=== PATIENT | male | born 1980 | race Caucasian/White ===

== ENCOUNTER 2019-07-17 13:10 | Inpatient (IN) ==
[2019-07-17] MEDS ORDERED: 0.9 % Sodium Chloride 1,000 ML IVC ONE ×3 (13:20→21:47)
[2019-07-17 14:12] LABS: Basophils % 0.2 %; Hematocrit 31.4 % (37.5-50.1); Hemoglobin 11.3 g/dL (12.9-16.9); Immature Granulocytes % 0.2 % (0-4); Lymphocytes # 0.5 K/mcL (0.6-4.6); Lymphocytes % 7.8 %; Mean Corpuscular Hemoglobin 28.8 pg (28.0-33.3); Mean Corpuscular Volume 79.9 fL (83.0-100.0); Monocytes # 0.2 K/mcL (0.0-1.3); Monocytes % 3.5 %; Neutrophils # 5.5 K/mcL (1.6-8.9); Platelet Count 260 K/mcL (140-400); Red Blood Count 3.93 M/mcL (4.19-5.50); Red Cell Distribution Width 13.1 % (11.5-14.5); Segmented Neutrophils % 88.3 %; White Blood Count 6.3 K/mcL (4.3-11.1)
[2019-07-17] MEDS ORDERED: cefTRIAXone 1,000 MG in Water for inj. (sterile) 10 ML IVP ONE (14:12)
[2019-07-17 14:34] LABS: Acetaminophen < 10 mcg/mL (10-20); Salicylate < 2.5 mg/dL (15.0-30.0); Troponin I < 0.03 ng/mL (< 0.04)
[2019-07-17 14:35] LABS: BUN/Creatinine Ratio 22 (6-26); Blood Urea Nitrogen 15 mg/dL (6-20); Calcium 9.5 mg/dL (8.6-10.3); Carbon Dioxide 24 mEq/L (23-29); Chloride 107 mEq/L (98-107); Ethanol < 10 mg/dL (Less than 10); Glucose 107 mg/dL (70-105); Osmolality,Calculated 289 (280-300); Potassium 3.6 mEq/L (3.5-5.1); Sodium 139 mEq/L (136-145); eGFR For African Americans > 60 (> 60); eGFR For Non-African Americans > 60 (> 60)
[2019-07-17 15:27] LABS: Bilirubin,Urine Negative (Negative); Blood,Urine Trace-intact (Negative); Clarity,Urine Clear (Clear); Color,Urine Yellow (Yellow); Glucose,Urine (UA) Normal (Normal); Ketones,Urine Negative (Negative); Leukocyte Esterase,Urine Negative (Negative); Nitrite,Urine Negative (Negative); PH,Urine 5.5 pH Units (5.0-8.0); Protein,Urine Trace mg/dL (Neg-Trace); Specific Gravity,Urine >= 1.030 (1.010-1.025); Urobilinogen,Urine Normal (Normal)
[2019-07-17 15:30] LABS: Bacteria,Urine None Seen per hpf (None-Few); Hyaline Casts,Urine None Seen per lpf (None-Few); RBC,Urine 0-3 per hpf (0-3); Squamous Epithelial Cell,Urine Moderate per lpf (None-Few); WBC,Urine 0-3 per hpf (0-3)
[2019-07-17 15:40] LABS: Amphetamine Screen,Urine Positive ng/mL (Cutoff=1000); Barbiturate Screen,Urine Negative ng/mL (Cutoff=200); Benzodiazepines Screen,Urine Negative ng/mL (Cutoff=200); Cannabinoid Screen,Urine Negative ng/mL (Cutoff = 50); Cocaine Screen,Urine Negative ng/mL (Cutoff= 300); Opiate Screen,Urine Negative ng/mL (Cutoff=300); Phencyclidine Screen,Urine Negative ng/mL (Cutoff=25)
[2019-07-17] MEDS ORDERED: *HR* LORazepam 1 MG TABLET PO ONE (16:01)
[2019-07-17] MEDS ORDERED: *HR* LORazepam 2 MG/ML VIAL IVP PRN ×3 (20:12)
[2019-07-17] MEDS ORDERED: Naloxone 0.4 MG/ML INJ IVP PRN (21:41)
[2019-07-17] MEDS: Thiamine (B-1) 100 MG, Folic Acid 1 MG, MVI, adult with vitamin K 10 ML in 0.9 % Sodi... IVPB SCH (22:42)
[2019-07-17] MEDS ORDERED: Nicotine 21 MG PATCH.TD24 TD PRN (23:06)
[2019-07-18 02:23] LABS: Hematocrit 29.9 % (37.5-50.1); Hemoglobin 10.1 g/dL (12.9-16.9); Mean Corpuscular HGB Conc 33.8 g/dL (31.6-35.5); Mean Corpuscular Hemoglobin 28.8 pg (28.0-33.3); Mean Corpuscular Volume 85.2 fL (83.0-100.0); Mean Platelet Volume 10.4 fL (9.4-12.4); Platelet Count 236 K/mcL (140-400); Red Blood Count 3.51 M/mcL (4.19-5.50); Red Cell Distribution Width 13.5 % (11.5-14.5); White Blood Count 5.9 K/mcL (4.3-11.1)
[2019-07-18 02:27] LABS: INR 1.1; Prothrombin Time 12.5 Seconds (9.4-12.1)
[2019-07-18 02:43] LABS: Alanine Aminotransferase 23 Units/L (7-52); Albumin 3.7 g/dL (3.5-5.7); Albumin/Globulin Ratio 1.8 (1.1-2.2); Alkaline Phosphatase 47 Units/L (34-104); Aspartate Amino Transferase 34 Units/L (13-39); BUN/Creatinine Ratio 11 (6-26); Bilirubin,Total 0.3 mg/dL (0.3-1.0); Blood Urea Nitrogen 8 mg/dL (6-20); Calcium 8.9 mg/dL (8.6-10.3); Carbon Dioxide 24 mEq/L (23-29); Chloride 111 mEq/L (98-107); Globulin 2.1 g/dL (2.4-3.5); Glucose 95 mg/dL (70-105); Magnesium 1.8 mg/dL (1.6-2.6); Osmolality,Calculated 294 (280-300); Phosphorous 3.1 mg/dL (2.7-4.5); Potassium 3.6 mEq/L (3.5-5.1); Sodium 143 mEq/L (136-145); Total Protein 5.8 g/dL (6.4-8.9); eGFR For African Americans > 60 (> 60); eGFR For Non-African Americans > 60 (> 60)
[2019-07-18] MEDS: 0.9 % Sodium Chloride 1,000 ML IVC SCH ×2 (12:00→22:48)
[2019-07-18] MEDS: Thiamine (B-1) 100 MG, Folic Acid 1 MG, MVI, adult with vitamin K 10 ML in 0.9 % Sodi... IVPB SCH (17:57)
[2019-07-18] MEDS ORDERED: *HR* Heparin 5,000 UNIT/ML VIAL SQ SCH (18:00)
[2019-07-18] MEDS ORDERED: Haloperidol Lactate 5 MG/ML VIAL IVP PRN ×2 (18:38→23:43)
[2019-07-18] MEDS ORDERED: Thiamine (B-1) 100 MG, Folic Acid 1 MG, MVI, adult with vitamin K 10 ML in 0.9 % Sodi... IVPB SCH (21:43)
[2019-07-18] MEDS ORDERED: *HR* LORazepam 2 MG/ML VIAL IVP ONE (22:05)
[2019-07-18] MEDS ORDERED: Dexmedetomidine HCl 400 MCG/100 ML MLS IVC SCH (23:00)
[2019-07-18] MEDS: Dexmedetomidine HCl 400 MCG/100 ML MLS IVC SCH (23:15)
[2019-07-18] MEDS ORDERED: 0.9 % Sodium Chloride 1,000 ML IVC SCH (23:43)
[2019-07-18] MEDS ORDERED: Nicotine 21 MG PATCH.TD24 TD PRN (23:43)
[2019-07-18] MEDS ORDERED: *HR* LORazepam 2 MG/ML VIAL IVP PRN ×3 (23:43)
[2019-07-18] MEDS ORDERED: Naloxone 0.4 MG/ML INJ IVP PRN (23:43)
[2019-07-19 04:57] LABS: Hemoglobin 10.6 g/dL (12.9-16.9); Mean Corpuscular HGB Conc 33.1 g/dL (31.6-35.5); Mean Corpuscular Hemoglobin 28.2 pg (28.0-33.3); Mean Corpuscular Volume 85.1 fL (83.0-100.0); Mean Platelet Volume 10.3 fL (9.4-12.4); Platelet Count 241 K/mcL (140-400); Red Blood Count 3.76 M/mcL (4.19-5.50); Red Cell Distribution Width 13.2 % (11.5-14.5); White Blood Count 6.3 K/mcL (4.3-11.1)
[2019-07-19 05:12] LABS: BUN/Creatinine Ratio 8 (6-26); Blood Urea Nitrogen 6 mg/dL (6-20); Calcium 9.1 mg/dL (8.6-10.3); Carbon Dioxide 23 mEq/L (23-29); Chloride 110 mEq/L (98-107); Glucose 110 mg/dL (70-105); Osmolality,Calculated 292 (280-300); Potassium 3.6 mEq/L (3.5-5.1); Sodium 142 mEq/L (136-145); eGFR For African Americans > 60 (> 60); eGFR For Non-African Americans > 60 (> 60)
[2019-07-19] MEDS: *HR* Heparin 5,000 UNIT/ML VIAL SQ SCH ×2 (05:54→17:04)
[2019-07-19] MEDS: Dexmedetomidine HCl 400 MCG/100 ML MLS IVC SCH (12:41)
[2019-07-19] MEDS ORDERED: SUBOXONE PO SCH (16:00)
[2019-07-19] MEDS ORDERED: *HR* Buprenorphine HCl 8 MG TAB.SUBL SL SCH (16:00)
[2019-07-19] MEDS ORDERED: Thiamine (B-1) 100 MG, Folic Acid 1 MG, MVI, adult with vitamin K 10 ML in 0.9 % Sodi... IVPB SCH (18:00)
[2019-07-20] MEDS: *HR* Heparin 5,000 UNIT/ML VIAL SQ SCH (05:44)
[2019-07-20] MEDS ORDERED: Thiamine (B-1) 100 MG TABLET PO SCH ×2 (09:00)
[2019-07-20] MEDS ORDERED: Folic Acid 1 MG TABLET PO SCH ×2 (09:00)
[2019-07-20] MEDS ORDERED: Vitamin B Complex/Vit C/Vit E 1 EACH TABLET PO SCH ×2 (09:00)
[2019-07-20 11:40] VITALS: BP 105/76
== END 2019-07-20 13:35 | disposition home or self-care (01) | DRG 917 ==
LOC: EMEROOARM 13:10 → 3ANU 13:10 → SUATTDRO 18:52 → 3ANU 19:28 → ICNU 07-18 23:43 → 2NNU 07-19 16:54
PROVIDERS: ADMIT Internal Medicine; ATTEND Internal Medicine

== ENCOUNTER 2021-05-30 10:51 | Inpatient (IN) ==
[2021-05-30] MEDS ORDERED: *HR* LORazepam 0.5 MG TABLET PO ONE (13:39)
[2021-05-30 13:47] LABS: Basophils % 0.6 %; Eosinophils % 0.6 %; Hematocrit 41.4 % (37.5-50.1); Hemoglobin 13.4 g/dL (12.9-16.9); Immature Granulocytes % 0.3 % (0-4); Lymphocytes # 1.1 K/mcL (0.6-4.6); Lymphocytes % 17.7 %; Mean Corpuscular HGB Conc 32.4 g/dL (31.6-35.5); Mean Corpuscular Hemoglobin 28.2 pg (28.0-33.3); Monocytes # 0.5 K/mcL (0.0-1.3); Monocytes % 8.5 %; Neutrophils # 4.6 K/mcL (1.6-8.9); Platelet Count 178 K/mcL (140-400); Red Blood Count 4.76 M/mcL (4.19-5.50); Red Cell Distribution Width 13.5 % (11.5-14.5); Segmented Neutrophils % 72.3 %; White Blood Count 6.3 K/mcL (4.3-11.1)
[2021-05-30] MEDS: Nicotine 7 MG PATCH.TD24 TD SCH (14:29)
[2021-05-30 14:45] LABS: Acetaminophen < 10 mcg/mL (10-20); BUN/Creatinine Ratio 9 (6-26); Blood Urea Nitrogen 6 mg/dL (6-20); Calcium 9.5 mg/dL (8.6-10.3); Carbon Dioxide 25 mEq/L (23-29); Chloride 92 mEq/L (98-107); Ethanol < 10 mg/dL (Less than 10); Glucose 91 mg/dL (70-105); Osmolality,Calculated 273 (280-300); Potassium 3.3 mEq/L (3.5-5.1); Salicylate < 2.5 mg/dL (15.0-30.0); Sodium 133 mEq/L (136-145); eGFR For African Americans > 60 (> 60); eGFR For Non-African Americans > 60 (> 60)
[2021-05-30 15:14] LABS: Influenza A PCR Negative (Negative); Influenza B PCR Negative (Negative); Resp. Syncytial Virus PCR Negative (Negative)
[2021-05-30 15:15] LABS: SARS-CoV-2 by PCR (In House) Negative (Negative)
[2021-05-30 16:33] LABS: Bilirubin,Urine Negative (Negative); Blood,Urine Negative (Negative); Clarity,Urine Clear (Clear); Color,Urine Light-Yellow (Yellow); Glucose,Urine (UA) Normal (Normal); Ketones,Urine Negative (Negative); Leukocyte Esterase,Urine Negative (Negative); Nitrite,Urine Negative (Negative); PH,Urine 6.5 pH Units (5.0-8.0); Protein,Urine Negative (Neg-Trace); Specific Gravity,Urine 1.011 (1.010-1.025); Urobilinogen,Urine Normal (Normal)
[2021-05-30 16:38] LABS: Amphetamine Screen,Urine Positive ng/mL (Cutoff=1000); Barbiturate Screen,Urine Negative ng/mL (Cutoff=200); Benzodiazepines Screen,Urine Negative ng/mL (Cutoff=200); Cannabinoid Screen,Urine Positive ng/mL (Cutoff = 50); Cocaine Screen,Urine Negative ng/mL (Cutoff= 300); Opiate Screen,Urine Negative ng/mL (Cutoff=300); Phencyclidine Screen,Urine Negative ng/mL (Cutoff=25)
[2021-05-30] MEDS ORDERED: QUEtiapine Fumarate 300 MG TABLET PO STA (19:36)
[2021-05-30] MEDS ORDERED: *HR* LORazepam 2 MG/ML VIAL IM PRN (20:09)
[2021-05-30] MEDS ORDERED: haloperidoL 5 MG TABLET PO PRN (20:09)
[2021-05-30] MEDS ORDERED: Acetaminophen 325 MG TABLET PO PRN (20:09)
[2021-05-30] MEDS ORDERED: *HR* LORazepam 1 MG TABLET PO PRN (20:09)
[2021-05-30] MEDS ORDERED: Haloperidol Lactate 5 MG/ML VIAL IM PRN (20:09)
[2021-05-30] MEDS ORDERED: hydrOXYzine pamoate 25 MG CAPSULE PO PRN (20:09)
[2021-05-30] MEDS ORDERED: NON-FORMULARY MEDICATION 1 EACH EACH (Quetiapine Fumarate [Seroquel] 400 MG Tablet) PO SCH (21:00)
[2021-05-31] MEDS: Buprenorphine Hcl/Naloxone Hcl 8-2MG SL SCH ×2 (10:37→21:15)
[2021-05-31] MEDS: Nicotine 7 MG PATCH.TD24 TD SCH (10:39)
[2021-05-31] MEDS ORDERED: Mag Hydrox/Al Hydrox/Simeth 30 ML UDC PO PRN (13:01)
[2021-05-31] MEDS ORDERED: MOM Conc 10 ML UD.LIQ PO PRN (13:01)
[2021-05-31] MEDS: QUETIAPINE FUMARATE PO SCH (21:14)
[2021-06-01] MEDS: Nicotine 7 MG PATCH.TD24 TD SCH (10:25)
[2021-06-01] MEDS: Buprenorphine Hcl/Naloxone Hcl 8-2MG SL SCH ×2 (10:25→20:43)
[2021-06-01] MEDS: QUETIAPINE FUMARATE PO SCH (20:42)
[2021-06-02] MEDS: Buprenorphine Hcl/Naloxone Hcl 8-2MG SL SCH ×2 (08:56→20:36)
[2021-06-02] MEDS: Nicotine 7 MG PATCH.TD24 TD SCH (08:58)
[2021-06-02] MEDS: haloperidoL 1 MG TABLET PO SCH ×2 (11:11→20:36)
[2021-06-02] MEDS: QUETIAPINE FUMARATE PO SCH (20:36)
[2021-06-03] MEDS: Buprenorphine Hcl/Naloxone Hcl 8-2MG SL SCH ×2 (08:45→21:06)
[2021-06-03] MEDS: Nicotine 7 MG PATCH.TD24 TD SCH (08:45)
[2021-06-03] MEDS: haloperidoL 1 MG TABLET PO SCH ×2 (08:48→21:06)
[2021-06-03] MEDS: QUETIAPINE FUMARATE PO SCH (21:06)
[2021-06-04] MEDS: haloperidoL 1 MG TABLET PO SCH ×2 (08:20→20:43)
[2021-06-04] MEDS: Buprenorphine Hcl/Naloxone Hcl 8-2MG SL SCH ×2 (08:20→20:44)
[2021-06-04] MEDS: Nicotine 7 MG PATCH.TD24 TD SCH (08:20)
[2021-06-04] MEDS: QUETIAPINE FUMARATE PO SCH (20:43)
[2021-06-04] MEDS: Clotrimazole 1% CRM 15 GM TUBE TP SCH (20:45)
[2021-06-05] MEDS: Nicotine 7 MG PATCH.TD24 TD SCH (08:45)
[2021-06-05] MEDS: *HR* Buprenorphine HCl 8 MG TAB.SUBL SL SCH ×2 (08:47→20:11)
[2021-06-05] MEDS: haloperidoL 1 MG TABLET PO SCH ×2 (08:48→20:11)
[2021-06-05] MEDS: Clotrimazole 1% CRM 15 GM TUBE TP SCH ×2 (08:52→20:12)
[2021-06-05] MEDS: QUETIAPINE FUMARATE PO SCH (20:11)
[2021-06-06] MEDS: Nicotine 7 MG PATCH.TD24 TD SCH (09:06)
[2021-06-06] MEDS: haloperidoL 1 MG TABLET PO SCH (09:07)
[2021-06-06] MEDS: *HR* Buprenorphine HCl 8 MG TAB.SUBL SL SCH ×2 (09:07→20:38)
[2021-06-06] MEDS: Clotrimazole 1% CRM 15 GM TUBE TP SCH ×2 (09:44→20:51)
[2021-06-06] MEDS: Nicotine 14 MG PATCH.TD24 TD SCH (15:35)
[2021-06-06] MEDS: haloperidoL 5 MG TABLET PO SCH (20:38)
[2021-06-06] MEDS: QUETIAPINE FUMARATE PO SCH (20:38)
[2021-06-06] MEDS: QUEtiapine Fumarate 25 MG TABLET PO PRN (22:21)
[2021-06-07] MEDS: Nicotine 14 MG PATCH.TD24 TD SCH (08:49)
[2021-06-07] MEDS: *HR* Buprenorphine HCl 8 MG TAB.SUBL SL SCH ×2 (08:50→20:37)
[2021-06-07] MEDS: haloperidoL 5 MG TABLET PO SCH ×2 (08:50→20:38)
[2021-06-07] MEDS: Clotrimazole 1% CRM 15 GM TUBE TP SCH ×2 (08:52→20:39)
[2021-06-07] MEDS: QUETIAPINE FUMARATE PO SCH (20:37)
[2021-06-08] MEDS: QUEtiapine Fumarate 25 MG TABLET PO PRN (00:46)
[2021-06-08 09:27] VITALS: BP 108/70; PULSE 80; TEMP 98; O2SAT 96
[2021-06-08] MEDS: haloperidoL 5 MG TABLET PO SCH (09:44)
[2021-06-08] MEDS: Clotrimazole 1% CRM 15 GM TUBE TP SCH (09:44)
[2021-06-08] MEDS: *HR* Buprenorphine HCl 8 MG TAB.SUBL SL SCH (09:44)
[2021-06-08] MEDS: Nicotine 14 MG PATCH.TD24 TD SCH (09:44)
== END 2021-06-08 12:50 | disposition home or self-care (01) | DRG 885 ==
LOC: 1ANU 10:51 → EMEROOARM 10:51 → 1ANU 20:37
PROVIDERS: ADMIT Psychiatry & Neurology Psychiatry; ATTEND Psychiatry & Neurology Psychiatry

== ENCOUNTER 2021-08-02 00:07 | Inpatient (IN) ==
[2021-08-02 03:19] LABS: Basophils % 0.1 %; Hematocrit 44.3 % (37.5-50.1); Hemoglobin 15.3 g/dL (12.9-16.9); Immature Granulocytes % 0.4 % (0-4); Lymphocytes # 0.5 K/mcL (0.6-4.6); Lymphocytes % 3.8 %; Mean Corpuscular HGB Conc 34.5 g/dL (31.6-35.5); Mean Corpuscular Hemoglobin 27.3 pg (28.0-33.3); Mean Platelet Volume 11.1 fL (9.4-12.4); Monocytes # 0.3 K/mcL (0.0-1.3); Monocytes % 2.8 %; Neutrophils # 11.3 K/mcL (1.6-8.9); Platelet Count 176 K/mcL (140-400); Red Blood Count 5.61 M/mcL (4.19-5.50); Red Cell Distribution Width 13.2 % (11.5-14.5); Segmented Neutrophils % 92.9 %; White Blood Count 12.2 K/mcL (4.3-11.1)
[2021-08-02 03:26] LABS: VBG HCO3 32 mEq/L (21-27); VBG PCO2 45 mmHg (41-51); VBG PH 7.45 pH Units (7.32-7.42); VBG PO2 42 mmHg (25-50)
[2021-08-02 03:40] LABS: Alanine Aminotransferase 10 Units/L (7-52); Albumin 3.6 g/dL (3.5-5.7); Albumin/Globulin Ratio 1.2 (1.1-2.2); Alkaline Phosphatase 54 Units/L (34-104); Aspartate Amino Transferase 16 Units/L (13-39); BUN/Creatinine Ratio 21 (6-26); Bilirubin,Total 0.6 mg/dL (0.3-1.0); Blood Urea Nitrogen 11 mg/dL (6-20); Calcium 8.8 mg/dL (8.6-10.3); Carbon Dioxide 33 mEq/L (23-29); Chloride 86 mEq/L (98-107); Globulin 3.1 g/dL (2.4-3.5); Glucose 128 mg/dL (70-105); Osmolality,Calculated 267 (280-300); Potassium 3.2 mEq/L (3.5-5.1); Sodium 128 mEq/L (136-145); Total Protein 6.7 g/dL (6.4-8.9); Troponin I < 0.03 ng/mL (< 0.04); eGFR For African Americans > 60 (> 60); eGFR For Non-African Americans > 60 (> 60)
[2021-08-02] MEDS ORDERED: Isovue-370 500 ML BOTTLE IVP ONE (03:43)
[2021-08-02 03:58] LABS: Ferritin 607 ng/mL (20-250)
[2021-08-02 05:01] LABS: Influenza A PCR Negative (Negative); Influenza B PCR Negative (Negative); Resp. Syncytial Virus PCR Negative (Negative)
[2021-08-02 05:02] LABS: SARS-CoV-2 by PCR (In House) Positive (Negative)
[2021-08-02] MEDS ORDERED: Vancomycin 1,250 MG/262.5 ML IV.SOLN IVPB ONE (05:15)
[2021-08-02] MEDS ORDERED: Cefepime HCl 2,000 MG in Water for inj. (sterile) 20 ML IVP ONE (05:19)
[2021-08-02] MEDS ORDERED: Naloxone 0.4 MG/ML INJ IVP PRN (05:36)
[2021-08-02] MEDS ORDERED: Melatonin 3 MG TABLET PO PRN (05:36)
[2021-08-02] MEDS ORDERED: 0.9 % Sodium Chloride 500 ML IVC ONE (06:02)
[2021-08-02] MEDS ORDERED: Remdesivir 200 MG in 0.9 % Sodium Chloride 100 ML IVPB ONE (07:00)
[2021-08-02 07:28] LABS: Bacteria,Urine Few per hpf (None-Few); Bilirubin,Urine Negative (Negative); Blood,Urine Negative (Negative); Clarity,Urine Clear (Clear); Color,Urine Yellow (Yellow); Glucose,Urine (UA) Normal (Normal); Ketones,Urine Negative (Negative); Leukocyte Esterase,Urine Negative (Negative); Mucus,Urine Few per lpf (None-Few); Nitrite,Urine Negative (Negative); Protein,Urine 30 mg/dL (Neg-Trace); Specific Gravity,Urine > 1.030 (1.010-1.025); Urobilinogen,Urine Normal (Normal); WBC,Urine 0-3 per hpf (0-3)
[2021-08-02] MEDS: *HR* Enoxaparin 40 MG/0.4 ML SYRINGE SQ SCH (08:38)
[2021-08-02] MEDS: haloperidoL 5 MG TABLET PO SCH ×2 (09:49→20:42)
[2021-08-02] MEDS ORDERED: 0.9 % Sodium Chloride 500 ML IVC SCH (11:00)
[2021-08-02] MEDS: Ipratropium 1 PUFF INHALER IH SCH ×3 (11:11→21:06)
[2021-08-02] MEDS: Ampicillin/Sulbactam 1,500 MG in 0.9 % Sodium Chloride Mini Bag 100 ML IVPB SCH ×3 (11:12→20:42)
[2021-08-02] MEDS: Nicotine 21 MG PATCH.TD24 TD SCH (11:13)
[2021-08-02 12:33] LABS: Amphetamine Screen,Urine Positive ng/mL (Cutoff=1000); Barbiturate Screen,Urine Negative ng/mL (Cutoff=200)
[2021-08-02 12:37] LABS: Benzodiazepines Screen,Urine Negative ng/mL (Cutoff=300); Cannabinoid Screen,Urine Positive ng/mL (Cutoff = 50); Cocaine Screen,Urine Negative ng/mL (Cutoff= 300); Opiate Screen,Urine Negative ng/mL (Cutoff=300); Phencyclidine Screen,Urine Negative ng/mL (Cutoff=25)
[2021-08-02] MEDS ORDERED: Cefepime HCl 2,000 MG in Water for inj. (sterile) 20 ML IVP SCH (13:00)
[2021-08-02] MEDS ORDERED: Ondansetron 4 MG/2 ML VIAL IVP PRN (15:03)
[2021-08-02] MEDS: QUEtiapine Fumarate 100 MG TABLET PO SCH (20:42)
[2021-08-03 01:03] LABS: Basophils % 0.1 %; Hematocrit 37.8 % (37.5-50.1); Immature Granulocytes % 0.4 % (0-4); Lymphocytes # 0.4 K/mcL (0.6-4.6); Lymphocytes % 4.6 %; Mean Corpuscular HGB Conc 34.7 g/dL (31.6-35.5); Mean Corpuscular Hemoglobin 27.6 pg (28.0-33.3); Mean Corpuscular Volume 79.7 fL (83.0-100.0); Mean Platelet Volume 11.4 fL (9.4-12.4); Monocytes # 0.3 K/mcL (0.0-1.3); Monocytes % 3.9 %; Neutrophils # 6.9 K/mcL (1.6-8.9); Platelet Count 180 K/mcL (140-400); Red Blood Count 4.74 M/mcL (4.19-5.50); Red Cell Distribution Width 13.3 % (11.5-14.5); White Blood Count 7.6 K/mcL (4.3-11.1)
[2021-08-03 01:05] LABS: Hemoglobin 13.1 g/dL (12.9-16.9)
[2021-08-03 01:20] LABS: BUN/Creatinine Ratio 33 (6-26); Blood Urea Nitrogen 15 mg/dL (6-20); Calcium 8.7 mg/dL (8.6-10.3); Carbon Dioxide 31 mEq/L (23-29); Chloride 92 mEq/L (98-107); Glucose 128 mg/dL (70-105); Magnesium 1.8 mg/dL (1.6-2.6); Osmolality,Calculated 276 (280-300); Potassium 3.5 mEq/L (3.5-5.1); Sodium 132 mEq/L (136-145); eGFR For African Americans > 60 (> 60); eGFR For Non-African Americans > 60 (> 60)
[2021-08-03 01:21] LABS: Albumin 3.2 g/dL (3.5-5.7); Albumin/Globulin Ratio 1.2 (1.1-2.2); Bilirubin,Direct 0.1 mg/dL (0.0-0.2); Bilirubin,Indirect 0.3 mg/dL (0.0-1.0); Bilirubin,Total 0.4 mg/dL (0.3-1.0); Globulin 2.6 g/dL (2.4-3.5); Total Protein 5.8 g/dL (6.4-8.9)
[2021-08-03] MEDS: Ampicillin/Sulbactam 1,500 MG in 0.9 % Sodium Chloride Mini Bag 100 ML IVPB SCH ×4 (03:02→20:12)
[2021-08-03] MEDS: Ipratropium 1 PUFF INHALER IH SCH ×5 (04:13→21:03)
[2021-08-03] MEDS: *HR* Enoxaparin 40 MG/0.4 ML SYRINGE SQ SCH (05:50)
[2021-08-03] MEDS: Remdesivir 100 MG in 0.9 % Sodium Chloride 100 ML IVPB SCH (05:51)
[2021-08-03] MEDS: haloperidoL 5 MG TABLET PO SCH ×2 (08:07→20:11)
[2021-08-03] MEDS: Dexamethasone Sodium Phos/PF 10 MG/ML VIAL IVP SCH (08:07)
[2021-08-03] MEDS: Nicotine 21 MG PATCH.TD24 TD SCH (08:16)
[2021-08-03] MEDS: QUEtiapine Fumarate 100 MG TABLET PO SCH (20:11)
[2021-08-04 02:53] LABS: Albumin 3.2 g/dL (3.5-5.7); Albumin/Globulin Ratio 1.2 (1.1-2.2); Bilirubin,Direct 0.1 mg/dL (0.0-0.2); Bilirubin,Indirect 0.2 mg/dL (0.0-1.0); Bilirubin,Total 0.3 mg/dL (0.3-1.0); Globulin 2.6 g/dL (2.4-3.5); Total Protein 5.8 g/dL (6.4-8.9)
[2021-08-04] MEDS: Ampicillin/Sulbactam 1,500 MG in 0.9 % Sodium Chloride Mini Bag 100 ML IVPB SCH ×4 (04:10→21:29)
[2021-08-04] MEDS: Ipratropium 1 PUFF INHALER IH SCH ×4 (04:58→19:55)
[2021-08-04] MEDS: *HR* Enoxaparin 40 MG/0.4 ML SYRINGE SQ SCH (06:02)
[2021-08-04] MEDS: Remdesivir 100 MG in 0.9 % Sodium Chloride 100 ML IVPB SCH (06:03)
[2021-08-04] MEDS: haloperidoL 5 MG TABLET PO SCH ×2 (08:46→21:29)
[2021-08-04] MEDS: Dexamethasone Sodium Phos/PF 10 MG/ML VIAL IVP SCH (08:46)
[2021-08-04] MEDS: Nicotine 21 MG PATCH.TD24 TD SCH (08:46)
[2021-08-04] MEDS: QUEtiapine Fumarate 100 MG TABLET PO SCH (21:29)
[2021-08-05] MEDS: Ampicillin/Sulbactam 1,500 MG in 0.9 % Sodium Chloride Mini Bag 100 ML IVPB SCH ×4 (02:40→21:44)
[2021-08-05] MEDS: Ipratropium 1 PUFF INHALER IH SCH ×4 (03:46→20:05)
[2021-08-05] MEDS: Remdesivir 100 MG in 0.9 % Sodium Chloride 100 ML IVPB SCH (06:00)
[2021-08-05] MEDS: *HR* Enoxaparin 40 MG/0.4 ML SYRINGE SQ SCH (06:00)
[2021-08-05 06:12] LABS: Hematocrit 38.3 % (37.5-50.1); Mean Corpuscular HGB Conc 33.9 g/dL (31.6-35.5); Mean Corpuscular Hemoglobin 27.8 pg (28.0-33.3); Mean Platelet Volume 10.1 fL (9.4-12.4); Platelet Count 309 K/mcL (140-400); Red Blood Count 4.67 M/mcL (4.19-5.50); Red Cell Distribution Width 13.4 % (11.5-14.5); White Blood Count 4.7 K/mcL (4.3-11.1)
[2021-08-05 06:37] LABS: Alanine Aminotransferase 26 Units/L (7-52); Albumin 3.4 g/dL (3.5-5.7); Albumin/Globulin Ratio 1.4 (1.1-2.2); Alkaline Phosphatase 55 Units/L (34-104); Aspartate Amino Transferase 33 Units/L (13-39); BUN/Creatinine Ratio 30 (6-26); Bilirubin,Direct 0.1 mg/dL (0.0-0.2); Bilirubin,Indirect 0.3 mg/dL (0.0-1.0); Bilirubin,Total 0.4 mg/dL (0.3-1.0); Blood Urea Nitrogen 16 mg/dL (6-20); Calcium 8.9 mg/dL (8.6-10.3); Carbon Dioxide 30 mEq/L (23-29); Chloride 97 mEq/L (98-107); Globulin 2.5 g/dL (2.4-3.5); Glucose 127 mg/dL (70-105); Osmolality,Calculated 283 (280-300); Sodium 135 mEq/L (136-145); Total Protein 5.9 g/dL (6.4-8.9); eGFR For African Americans > 60 (> 60); eGFR For Non-African Americans > 60 (> 60)
[2021-08-05] MEDS: Nicotine 21 MG PATCH.TD24 TD SCH (08:33)
[2021-08-05] MEDS: Cholecalciferol (D-3) 1,000 UNIT (25MCG) TABLET PO SCH (08:33)
[2021-08-05] MEDS: haloperidoL 5 MG TABLET PO SCH ×2 (08:33→21:45)
[2021-08-05] MEDS: Dexamethasone Sodium Phos/PF 10 MG/ML VIAL IVP SCH (08:35)
[2021-08-05] MEDS: NALOXONE SL SCH ×4 (15:13→22:16)
[2021-08-05] MEDS: BUPRENORPHINE SL SCH ×4 (15:13→22:16)
[2021-08-05] MEDS: QUEtiapine Fumarate 100 MG TABLET PO SCH (21:44)
[2021-08-06] MEDS: Ampicillin/Sulbactam 1,500 MG in 0.9 % Sodium Chloride Mini Bag 100 ML IVPB SCH ×4 (03:26→21:49)
[2021-08-06] MEDS: Ipratropium 1 PUFF INHALER IH SCH ×5 (04:33→20:47)
[2021-08-06 06:14] LABS: Hematocrit 37.1 % (37.5-50.1); Hemoglobin 12.3 g/dL (12.9-16.9); Mean Corpuscular HGB Conc 33.2 g/dL (31.6-35.5); Mean Corpuscular Hemoglobin 27.2 pg (28.0-33.3); Mean Corpuscular Volume 82.1 fL (83.0-100.0); Mean Platelet Volume 9.9 fL (9.4-12.4); Platelet Count 342 K/mcL (140-400); Red Blood Count 4.52 M/mcL (4.19-5.50); Red Cell Distribution Width 13.7 % (11.5-14.5); White Blood Count 5.9 K/mcL (4.3-11.1)
[2021-08-06] MEDS: *HR* Enoxaparin 40 MG/0.4 ML SYRINGE SQ SCH (06:14)
[2021-08-06] MEDS: Remdesivir 100 MG in 0.9 % Sodium Chloride 100 ML IVPB SCH (06:15)
[2021-08-06 06:38] LABS: Alanine Aminotransferase 27 Units/L (7-52); Albumin 3.1 g/dL (3.5-5.7); Albumin/Globulin Ratio 1.5 (1.1-2.2); Alkaline Phosphatase 48 Units/L (34-104); Aspartate Amino Transferase 25 Units/L (13-39); BUN/Creatinine Ratio 49 (6-26); Bilirubin,Direct 0.1 mg/dL (0.0-0.2); Bilirubin,Indirect 0.2 mg/dL (0.0-1.0); Bilirubin,Total 0.3 mg/dL (0.3-1.0); Blood Urea Nitrogen 19 mg/dL (6-20); Calcium 8.6 mg/dL (8.6-10.3); Carbon Dioxide 29 mEq/L (23-29); Chloride 103 mEq/L (98-107); Globulin 2.1 g/dL (2.4-3.5); Glucose 100 mg/dL (70-105); Osmolality,Calculated 286 (280-300); Potassium 3.9 mEq/L (3.5-5.1); Sodium 137 mEq/L (136-145); Total Protein 5.2 g/dL (6.4-8.9); eGFR For African Americans > 60 (> 60); eGFR For Non-African Americans > 60 (> 60)
[2021-08-06] MEDS: Dexamethasone Sodium Phos/PF 10 MG/ML VIAL IVP SCH (08:00)
[2021-08-06] MEDS: Cholecalciferol (D-3) 1,000 UNIT (25MCG) TABLET PO SCH (08:00)
[2021-08-06] MEDS: haloperidoL 5 MG TABLET PO SCH ×2 (08:00→21:48)
[2021-08-06] MEDS: Nicotine 21 MG PATCH.TD24 TD SCH (08:01)
[2021-08-06] MEDS: BUPRENORPHINE SL SCH ×2 (08:59→21:48)
[2021-08-06] MEDS: NALOXONE SL SCH ×2 (08:59→21:48)
[2021-08-06] MEDS ORDERED: Tuberculin Skin Test (PPD) 5 UNIT/0.1 ML VIAL ID ONE (13:56)
[2021-08-06] MEDS: QUEtiapine Fumarate 100 MG TABLET PO SCH (21:49)
[2021-08-07] MEDS: Ampicillin/Sulbactam 1,500 MG in 0.9 % Sodium Chloride Mini Bag 100 ML IVPB SCH ×4 (03:20→20:59)
[2021-08-07] MEDS: Ipratropium 1 PUFF INHALER IH SCH ×4 (04:22→19:53)
[2021-08-07] MEDS: *HR* Enoxaparin 40 MG/0.4 ML SYRINGE SQ SCH (04:52)
[2021-08-07] MEDS: Cholecalciferol (D-3) 1,000 UNIT (25MCG) TABLET PO SCH (09:41)
[2021-08-07] MEDS: Nicotine 21 MG PATCH.TD24 TD SCH (09:41)
[2021-08-07] MEDS: BUPRENORPHINE SL SCH ×2 (09:42→20:59)
[2021-08-07] MEDS: haloperidoL 5 MG TABLET PO SCH ×2 (09:42→20:59)
[2021-08-07] MEDS: Dexamethasone Sodium Phos/PF 10 MG/ML VIAL IVP SCH (09:42)
[2021-08-07] MEDS: NALOXONE SL SCH ×2 (09:42→20:59)
[2021-08-07] MEDS ORDERED: Perflutren Lipid Microsphere 1.3 ML in 0.9 % Sodium Chloride 8.7 ML IVP PRN (11:24)
[2021-08-07 15:20] LABS: Albumin 3.2 g/dL (3.5-5.7); Albumin/Globulin Ratio 1.3 (1.1-2.2); Bilirubin,Direct 0.1 mg/dL (0.0-0.2); Bilirubin,Indirect 0.2 mg/dL (0.0-1.0); Bilirubin,Total 0.3 mg/dL (0.3-1.0); Globulin 2.4 g/dL (2.4-3.5); Total Protein 5.6 g/dL (6.4-8.9)
[2021-08-07] MEDS ORDERED: Acetaminophen 325 MG TABLET PO PRN (17:21)
[2021-08-07] MEDS: QUEtiapine Fumarate 100 MG TABLET PO SCH (20:59)
[2021-08-08] MEDS: Ampicillin/Sulbactam 1,500 MG in 0.9 % Sodium Chloride Mini Bag 100 ML IVPB SCH ×4 (02:38→21:26)
[2021-08-08 02:50] LABS: Hematocrit 34.8 % (37.5-50.1); Hemoglobin 11.5 g/dL (12.9-16.9); Mean Corpuscular Hemoglobin 27.1 pg (28.0-33.3); Mean Corpuscular Volume 81.9 fL (83.0-100.0); Mean Platelet Volume 9.3 fL (9.4-12.4); Platelet Count 447 K/mcL (140-400); Red Blood Count 4.25 M/mcL (4.19-5.50); White Blood Count 6.4 K/mcL (4.3-11.1)
[2021-08-08 03:00] LABS: Prothrombin Time 10.8 Seconds (9.4-12.1)
[2021-08-08] MEDS: Ipratropium 1 PUFF INHALER IH SCH ×4 (03:47→20:15)
[2021-08-08 03:51] LABS: Anisocytosis 1+ (Not Present); Lymphocytes # 0.9 K/mcL (0.6-4.6); Monocytes # 0.3 K/mcL (0.0-1.3); Platelet Estimate Normal (Normal); Reactive Lymphocytes Present (Not Present); Toxic Granulation Present (Not Present)
[2021-08-08] MEDS: *HR* Enoxaparin 40 MG/0.4 ML SYRINGE SQ SCH (05:26)
[2021-08-08] MEDS: Dexamethasone Sodium Phos/PF 10 MG/ML VIAL IVP SCH (08:47)
[2021-08-08] MEDS: Cholecalciferol (D-3) 1,000 UNIT (25MCG) TABLET PO SCH (08:47)
[2021-08-08] MEDS: haloperidoL 5 MG TABLET PO SCH ×2 (08:47→21:26)
[2021-08-08] MEDS: Nicotine 21 MG PATCH.TD24 TD SCH (08:48)
[2021-08-08] MEDS: BUPRENORPHINE SL SCH ×2 (09:02→21:54)
[2021-08-08] MEDS: NALOXONE SL SCH ×2 (09:02→21:54)
[2021-08-08] MEDS ORDERED: Lidocaine -MPF 2% 5 ML VIAL ONE (11:30)
[2021-08-08] MEDS ORDERED: *HR* Succinylcholine 200 MG/10 ML VIAL IVP ONE (11:30)
[2021-08-08] MEDS ORDERED: *HR* Midazolam HCl 2 MG/2 ML VIAL ONE (11:30)
[2021-08-08] MEDS ORDERED: *HR* Rocuronium Bromide 50 MG/5 ML VIAL ONE (11:30)
[2021-08-08] MEDS ORDERED: Ondansetron 4 MG/2 ML VIAL ONE (11:30)
[2021-08-08] MEDS ORDERED: *HR* FentaNYL (PF) 100 MCG/2 ML VIAL ONE (11:30)
[2021-08-08] MEDS ORDERED: Lidocaine HCL 4 ML Topical Solution (Laryng-O-Jet Kit Sterile Pak) TP ONE (11:30)
[2021-08-08] MEDS ORDERED: *HR* Propofol 200 MG/20 ML VIAL IVP ONE (11:30)
[2021-08-08 16:38] LABS: Source of Body Fluid RLL BAL
[2021-08-08 17:16] LABS: Appearance of Body Fluid Hazy (Clear)
[2021-08-08 17:17] LABS: Volume of Body Fluid 15 mL
[2021-08-08] MEDS: QUEtiapine Fumarate 100 MG TABLET PO SCH (21:26)
[2021-08-09] MEDS: Ampicillin/Sulbactam 1,500 MG in 0.9 % Sodium Chloride Mini Bag 100 ML IVPB SCH ×4 (01:55→21:30)
[2021-08-09] MEDS: Ipratropium 1 PUFF INHALER IH SCH ×4 (03:56→21:09)
[2021-08-09] MEDS: *HR* Enoxaparin 40 MG/0.4 ML SYRINGE SQ SCH (06:09)
[2021-08-09] MEDS: haloperidoL 5 MG TABLET PO SCH ×2 (07:57→21:31)
[2021-08-09] MEDS: Cholecalciferol (D-3) 1,000 UNIT (25MCG) TABLET PO SCH (07:57)
[2021-08-09] MEDS: Nicotine 21 MG PATCH.TD24 TD SCH (07:58)
[2021-08-09] MEDS: NALOXONE SL SCH ×2 (09:11→22:29)
[2021-08-09] MEDS: BUPRENORPHINE SL SCH ×2 (09:11→22:29)
[2021-08-09] MEDS: QUEtiapine Fumarate 100 MG TABLET PO SCH (21:31)
[2021-08-09] MEDS: *HR* Buprenorphine HCl 2 MG SUBLINGUAL TABLET SL SCH (22:57)
[2021-08-09 23:35] LABS: A.galactomannan Ag Index 0.05
[2021-08-10] MEDS: Ampicillin/Sulbactam 1,500 MG in 0.9 % Sodium Chloride Mini Bag 100 ML IVPB SCH ×2 (02:41→08:14)
[2021-08-10] MEDS: Ipratropium 1 PUFF INHALER IH SCH ×2 (04:15→08:06)
[2021-08-10] MEDS: *HR* Enoxaparin 40 MG/0.4 ML SYRINGE SQ SCH (05:29)
[2021-08-10 06:22] VITALS: O2SAT 93
[2021-08-10] MEDS: Nicotine 21 MG PATCH.TD24 TD SCH (08:15)
[2021-08-10] MEDS: Cholecalciferol (D-3) 1,000 UNIT (25MCG) TABLET PO SCH (08:17)
[2021-08-10 10:58] VITALS: BP 93/59; PULSE 94; TEMP 98
[2021-08-10] MEDS: haloperidoL 5 MG TABLET PO SCH (11:24)
[2021-08-10] MEDS: *HR* Buprenorphine HCl 2 MG SUBLINGUAL TABLET SL SCH (11:24)
[2021-08-13 08:43] LABS: QuantiFERON Mitogen minus NIL 0.41 IU/mL
[2021-08-13 09:22] LABS: QuantiFERON NIL 0.01 IU/mL; QuantiFERON-TB Gold In-Tube INDETERMINATE (Negative)
== END 2021-08-10 14:44 | disposition home or self-care (01) | DRG 871 ==
LOC: EMEROOARM 00:07 → SUATTDRO 13:27 → 3BNU 13:27
PROVIDERS: ADMIT Student in an Organized Health Care Education/Training Program; ATTEND Internal Medicine

== ENCOUNTER 2021-09-24 13:13 | Inpatient (IN) ==
[2021-09-24 14:33] LABS: Basophils # 0.1 K/mcL (0.0-0.2); Basophils % 0.9 %; Eosinophils # 0.1 K/mcL (0.0-0.6); Eosinophils % 1.4 %; Hemoglobin 11.8 g/dL (12.9-16.9); Immature Granulocytes % 0.2 % (0-4); Lymphocytes # 1.3 K/mcL (0.6-4.6); Lymphocytes % 21.3 %; Mean Corpuscular HGB Conc 34.7 g/dL (31.6-35.5); Mean Corpuscular Hemoglobin 29.1 pg (28.0-33.3); Mean Corpuscular Volume 83.7 fL (83.0-100.0); Mean Platelet Volume 9.3 fL (9.4-12.4); Monocytes # 0.4 K/mcL (0.0-1.3); Monocytes % 6.5 %; Neutrophils # 4.1 K/mcL (1.6-8.9); Platelet Count 376 K/mcL (140-400); Red Blood Count 4.06 M/mcL (4.19-5.50); Red Cell Distribution Width 13.5 % (11.5-14.5); Segmented Neutrophils % 69.7 %; White Blood Count 5.9 K/mcL (4.3-11.1)
[2021-09-24 15:01] LABS: Acetaminophen < 10 mcg/mL (10-20); Alanine Aminotransferase 10 Units/L (7-52); Albumin 4.3 g/dL (3.5-5.7); Albumin/Globulin Ratio 1.9 (1.1-2.2); Alkaline Phosphatase 74 Units/L (34-104); Aspartate Amino Transferase 13 Units/L (13-39); BUN/Creatinine Ratio 13 (6-26); Bilirubin,Direct 0.1 mg/dL (0.0-0.2); Bilirubin,Indirect 0.4 mg/dL (0.0-1.0); Bilirubin,Total 0.5 mg/dL (0.3-1.0); Blood Urea Nitrogen 8 mg/dL (6-20); Calcium 9.4 mg/dL (8.6-10.3); Carbon Dioxide 27 mEq/L (23-29); Chloride 100 mEq/L (98-107); Ethanol < 10 mg/dL (Less than 10); Globulin 2.3 g/dL (2.4-3.5); Glucose 92 mg/dL (70-105); Osmolality,Calculated 280 (280-300); Potassium 3.5 mEq/L (3.5-5.1); Salicylate < 2.5 mg/dL (15.0-30.0); Sodium 136 mEq/L (136-145); Total Protein 6.6 g/dL (6.4-8.9); eGFR For African Americans > 60 (> 60); eGFR For Non-African Americans > 60 (> 60)
[2021-09-24 15:23] LABS: Bilirubin,Urine Negative (Negative); Blood,Urine Negative (Negative); Clarity,Urine Clear (Clear); Color,Urine Light-Yellow (Yellow); Glucose,Urine (UA) Normal (Normal); Ketones,Urine Negative (Negative); Leukocyte Esterase,Urine Negative (Negative); Nitrite,Urine Negative (Negative); PH,Urine 5.5 pH Units (5.0-8.0); Protein,Urine Negative (Neg-Trace); Urobilinogen,Urine Normal (Normal)
[2021-09-24 15:33] LABS: Amphetamine Screen,Urine Positive ng/mL (Cutoff=1000); Barbiturate Screen,Urine Negative ng/mL (Cutoff=200); Benzodiazepines Screen,Urine Negative ng/mL (Cutoff=200); Cannabinoid Screen,Urine Positive ng/mL (Cutoff = 50); Cocaine Screen,Urine Negative ng/mL (Cutoff= 300); Opiate Screen,Urine Negative ng/mL (Cutoff=300); Phencyclidine Screen,Urine Negative ng/mL (Cutoff=25)
[2021-09-24 17:36] LABS: Influenza A PCR Negative (Negative); Influenza B PCR Negative (Negative); Resp. Syncytial Virus PCR Negative (Negative)
[2021-09-24 17:38] LABS: SARS-CoV-2 by PCR (In House) Negative (Negative)
[2021-09-24] MEDS ORDERED: Haloperidol Lactate 5 MG/ML VIAL IM PRN (17:55)
[2021-09-24] MEDS ORDERED: QUEtiapine Fumarate 25 MG TABLET PO PRN (17:55)
[2021-09-24] MEDS ORDERED: haloperidoL 5 MG TABLET PO PRN (17:55)
[2021-09-24] MEDS ORDERED: *HR* LORazepam 1 MG TABLET PO PRN (17:55)
[2021-09-24] MEDS ORDERED: *HR* LORazepam 2 MG/ML VIAL IM PRN (17:55)
[2021-09-25] MEDS: *HR* Buprenorphine HCl 8 MG TAB.SUBL SL SCH ×2 (12:12→17:23)
[2021-09-25] MEDS: Nicotine 21 MG PATCH.TD24 TD SCH (13:21)
[2021-09-25] MEDS: hydrOXYzine pamoate 25 MG CAPSULE PO PRN (17:21)
[2021-09-25] MEDS: QUEtiapine Fumarate 100 MG TABLET PO SCH (21:18)
[2021-09-26] MEDS: *HR* Buprenorphine HCl 8 MG TAB.SUBL SL SCH ×2 (09:25→15:59)
[2021-09-26] MEDS: Nicotine 21 MG PATCH.TD24 TD SCH (09:26)
[2021-09-26] MEDS: Divalproex (12 HR) 250 MG TABLET PO SCH ×2 (15:59→20:56)
[2021-09-26] MEDS: Ibuprofen 400 MG TABLET PO PRN (20:55)
[2021-09-26] MEDS: QUEtiapine Fumarate 100 MG TABLET PO SCH (20:55)
[2021-09-26] MEDS: hydrOXYzine pamoate 25 MG CAPSULE PO PRN (20:56)
[2021-09-27] MEDS: Divalproex (12 HR) 250 MG TABLET PO SCH ×3 (10:06→21:09)
[2021-09-27] MEDS: Nicotine 21 MG PATCH.TD24 TD SCH (10:06)
[2021-09-27] MEDS: *HR* Buprenorphine HCl 8 MG TAB.SUBL SL SCH ×2 (10:08→17:09)
[2021-09-27] MEDS: Ibuprofen 400 MG TABLET PO PRN (21:08)
[2021-09-27] MEDS: QUEtiapine Fumarate 300 MG TABLET PO SCH (21:09)
[2021-09-28] MEDS: *HR* Buprenorphine HCl 8 MG TAB.SUBL SL SCH ×2 (09:23→17:12)
[2021-09-28] MEDS: Divalproex (12 HR) 250 MG TABLET PO SCH ×3 (09:23→21:36)
[2021-09-28] MEDS: Nicotine 21 MG PATCH.TD24 TD SCH (09:23)
[2021-09-28] MEDS: hydrOXYzine pamoate 25 MG CAPSULE PO PRN (21:33)
[2021-09-28] MEDS: Ibuprofen 400 MG TABLET PO PRN (21:34)
[2021-09-28] MEDS: QUEtiapine Fumarate 300 MG TABLET PO SCH (21:34)
[2021-09-29] MEDS: Nicotine 21 MG PATCH.TD24 TD SCH (09:53)
[2021-09-29] MEDS: *HR* Buprenorphine HCl 8 MG TAB.SUBL SL SCH ×2 (09:54→16:18)
[2021-09-29] MEDS: Divalproex (12 HR) 250 MG TABLET PO SCH ×3 (09:54→20:49)
[2021-09-29] MEDS: QUEtiapine Fumarate 300 MG TABLET PO SCH (20:49)
[2021-09-30] MEDS: *HR* Buprenorphine HCl 8 MG TAB.SUBL SL SCH ×2 (09:21→16:14)
[2021-09-30] MEDS: Divalproex (12 HR) 250 MG TABLET PO SCH ×3 (09:21→21:14)
[2021-09-30] MEDS: Nicotine 21 MG PATCH.TD24 TD SCH (09:21)
[2021-09-30] MEDS: QUEtiapine Fumarate 300 MG TABLET PO SCH (21:14)
[2021-09-30] MEDS: hydrOXYzine pamoate 25 MG CAPSULE PO PRN (21:14)
[2021-09-30] MEDS: Ibuprofen 400 MG TABLET PO PRN (21:14)
[2021-10-01] MEDS: Nicotine 21 MG PATCH.TD24 TD SCH (09:15)
[2021-10-01] MEDS: Divalproex (12 HR) 250 MG TABLET PO SCH ×3 (09:16→20:39)
[2021-10-01] MEDS: *HR* Buprenorphine HCl 8 MG TAB.SUBL SL SCH ×2 (09:16→16:23)
[2021-10-01 20:17] VITALS: TEMP 99.1
[2021-10-01] MEDS: QUEtiapine Fumarate 300 MG TABLET PO SCH (20:39)
[2021-10-01] MEDS: hydrOXYzine pamoate 25 MG CAPSULE PO PRN (20:39)
[2021-10-02] MEDS: *HR* Buprenorphine HCl 8 MG TAB.SUBL SL SCH (09:29)
[2021-10-02] MEDS: Divalproex (12 HR) 250 MG TABLET PO SCH (09:30)
[2021-10-02] MEDS: Nicotine 21 MG PATCH.TD24 TD SCH (09:32)
[2021-10-02 10:04] VITALS: BP 107/74; PULSE 101; O2SAT 97
== END 2021-10-02 11:00 | disposition home or self-care (01) | DRG 885 ==
LOC: EMEROOARM 13:13 → 1ANU 17:59
PROVIDERS: ADMIT Psychiatry & Neurology Psychiatry; ATTEND Psychiatry & Neurology Psychiatry

== ENCOUNTER 2022-01-01 01:35 | Inpatient (IN) ==
[2022-01-01 02:28] LABS: Basophils # 0.1 K/mcL (0.0-0.2); Basophils % 0.6 %; Eosinophils # 0.1 K/mcL (0.0-0.6); Eosinophils % 1.1 %; Hematocrit 38.8 % (37.5-50.1); Hemoglobin 13.9 g/dL (12.9-16.9); Immature Granulocytes % 0.6 % (0-4); Lymphocytes # 2.1 K/mcL (0.6-4.6); Lymphocytes % 23.4 %; Mean Corpuscular HGB Conc 35.8 g/dL (31.6-35.5); Mean Corpuscular Hemoglobin 28.2 pg (28.0-33.3); Mean Corpuscular Volume 78.7 fL (83.0-100.0); Mean Platelet Volume 8.9 fL (9.4-12.4); Monocytes # 0.7 K/mcL (0.0-1.3); Neutrophils # 5.9 K/mcL (1.6-8.9); Platelet Count 248 K/mcL (140-400); Red Blood Count 4.93 M/mcL (4.19-5.50); Red Cell Distribution Width 13.3 % (11.5-14.5); Segmented Neutrophils % 66.3 %; White Blood Count 8.9 K/mcL (4.3-11.1)
[2022-01-01 02:37] LABS: Amphetamine Screen,Urine Positive ng/mL (Cutoff=1000); Barbiturate Screen,Urine Negative ng/mL (Cutoff=200); Benzodiazepines Screen,Urine Negative ng/mL (Cutoff=200); Cannabinoid Screen,Urine Negative ng/mL (Cutoff = 50); Cocaine Screen,Urine Negative ng/mL (Cutoff= 300); Opiate Screen,Urine Negative ng/mL (Cutoff=300); Phencyclidine Screen,Urine Negative ng/mL (Cutoff=25)
[2022-01-01 02:40] LABS: Bilirubin,Urine Negative (Negative); Blood,Urine Negative (Negative); Clarity,Urine Turbid (Clear); Color,Urine Light-Yellow (Yellow); Glucose,Urine (UA) Normal (Normal); Ketones,Urine Negative (Negative); Leukocyte Esterase,Urine Negative (Negative); Nitrite,Urine Negative (Negative); PH,Urine 6.5 pH Units (5.0-8.0); Protein,Urine Negative (Neg-Trace); RBC,Urine 0-3 per hpf (0-3); Specific Gravity,Urine 1.005 (1.010-1.025); Urobilinogen,Urine Normal (Normal); WBC,Urine 0-3 per hpf (0-3)
[2022-01-01] MEDS ORDERED: *HR* LORazepam 1 MG TABLET PO ONE (02:40)
[2022-01-01] MEDS: Potassium Chloride Elixir 20 MEQ/15 ML UDC PO ONE (03:13)
[2022-01-01 03:14] LABS: Acetaminophen < 10 mcg/mL (10-20); BUN/Creatinine Ratio 11 (6-26); Blood Urea Nitrogen 8 mg/dL (6-20); Calcium 9.7 mg/dL (8.6-10.3); Carbon Dioxide 30 mEq/L (23-29); Chloride 86 mEq/L (98-107); Ethanol < 10 mg/dL (Less than 10); Glucose 127 mg/dL (70-105); Osmolality,Calculated 264 (280-300); Potassium 2.3 mEq/L (3.5-5.1); Salicylate < 2.5 mg/dL (15.0-30.0); Sodium 127 mEq/L (136-145); eGFR For African Americans > 60 (> 60); eGFR For Non-African Americans > 60 (> 60)
[2022-01-01] MEDS ORDERED: Ketorolac 30 MG/ML VIAL IVP ONE (03:25)
[2022-01-01 03:46] LABS: Alanine Aminotransferase 895 Units/L (7-52); Albumin 4.6 g/dL (3.5-5.7); Albumin/Globulin Ratio 2.3 (1.1-2.2); Alkaline Phosphatase 105 Units/L (34-104); Aspartate Amino Transferase 64 Units/L (13-39); Bilirubin,Direct 0.5 mg/dL (0.0-0.2); Bilirubin,Indirect 1.5 mg/dL (0.0-1.0); Total Protein 6.6 g/dL (6.4-8.9)
[2022-01-01] MEDS ORDERED: Ondansetron 4 MG/2 ML VIAL IVP ONE (03:52)
[2022-01-01] MEDS ORDERED: 0.9 % Sodium Chloride 1,000 ML IV ONE (04:08)
[2022-01-01] MEDS ORDERED: Isovue-370 500 ML BOTTLE IVP ONE (04:09)
[2022-01-01] MEDS ORDERED: Naloxone 0.4 MG/ML INJ IVP PRN (04:14)
[2022-01-01] MEDS ORDERED: Ibuprofen 400 MG TABLET PO PRN (04:14)
[2022-01-01] MEDS ORDERED: Ondansetron ODT 4 MG TAB.RAPDIS SL PRN (04:14)
[2022-01-01] MEDS ORDERED: 0.9 % Sodium Chloride 1,000 ML IVC SCH ×2 (04:15→05:13)
[2022-01-01] MEDS: Nicotine 21 MG PATCH.TD24 TD SCH (06:08)
[2022-01-01 07:42] LABS: Hepatitis B Surface Antigen Nonreactive (Nonreactive)
[2022-01-01 08:11] LABS: Hepatitis B Core IgM Nonreactive (Nonreactive)
[2022-01-01 08:13] LABS: Hepatitis A Antibody IgM Nonreactive (Nonreactive)
[2022-01-01] MEDS: 0.9 % Sodium Chloride 1,000 ML IVC SCH (08:37)
[2022-01-01] MEDS: metroNIDAZOLE 500 MG TABLET PO SCH ×3 (08:37→19:43)
[2022-01-01] MEDS ORDERED: Nicotine 21 MG PATCH.TD24 TD SCH (09:00)
[2022-01-01 10:26] LABS: Alanine Aminotransferase 695 Units/L (7-52); Aspartate Amino Transferase 48 Units/L (13-39); BUN/Creatinine Ratio 14 (6-26); Blood Urea Nitrogen 10 mg/dL (6-20); Calcium 8.9 mg/dL (8.6-10.3); Carbon Dioxide 28 mEq/L (23-29); Chloride 95 mEq/L (98-107); Glucose 109 mg/dL (70-105); Magnesium 1.8 mg/dL (1.6-2.6); Osmolality,Calculated 274 (280-300); Phosphorous 3.9 mg/dL (2.7-4.5); Potassium 3.1 mEq/L (3.5-5.1); Sodium 132 mEq/L (136-145); eGFR For African Americans > 60 (> 60); eGFR For Non-African Americans > 60 (> 60)
[2022-01-01 11:53] LABS: Hepatitis C Virus Antibody Reactive (Nonreactive)
[2022-01-01] MEDS: *HR* Heparin 5,000 UNIT/ML VIAL SQ SCH (18:02)
[2022-01-01] MEDS: Nicotine 2 MG GUM BC PRN (18:08)
[2022-01-01] MEDS: Melatonin 3 MG TABLET PO PRN (19:59)
[2022-01-02] MEDS: 0.9 % Sodium Chloride 1,000 ML IVC SCH (01:54)
[2022-01-02] MEDS: Nicotine 2 MG GUM BC PRN (03:06)
[2022-01-02] MEDS: *HR* Heparin 5,000 UNIT/ML VIAL SQ SCH ×2 (04:57→17:14)
[2022-01-02] MEDS: Nicotine 21 MG PATCH.TD24 TD SCH ×2 (07:38→08:50)
[2022-01-02] MEDS: metroNIDAZOLE 500 MG TABLET PO SCH ×3 (07:54→21:25)
[2022-01-02 08:43] LABS: BUN/Creatinine Ratio 12 (6-26); Blood Urea Nitrogen 9 mg/dL (6-20); Calcium 8.7 mg/dL (8.6-10.3); Carbon Dioxide 29 mEq/L (23-29); Chloride 102 mEq/L (98-107); Glucose 107 mg/dL (70-105); Magnesium 1.6 mg/dL (1.6-2.6); Osmolality,Calculated 281 (280-300); Phosphorous 2.3 mg/dL (2.7-4.5); Potassium 3.8 mEq/L (3.5-5.1); Sodium 136 mEq/L (136-145); eGFR For African Americans > 60 (> 60); eGFR For Non-African Americans > 60 (> 60)
[2022-01-02] MEDS: Divalproex (12 HR) 250 MG TABLET PO SCH ×2 (17:04→21:37)
[2022-01-02] MEDS ORDERED: Ibuprofen 600 MG TABLET PO ONE (21:11)
[2022-01-03] MEDS: Melatonin 3 MG TABLET PO PRN (00:02)
[2022-01-03] MEDS: *HR* Heparin 5,000 UNIT/ML VIAL SQ SCH (05:53)
[2022-01-03 07:12] VITALS: BP 121/72; PULSE 68; TEMP 98.1; O2SAT 98
[2022-01-03] MEDS: Divalproex (12 HR) 250 MG TABLET PO SCH (07:30)
[2022-01-03] MEDS: metroNIDAZOLE 500 MG TABLET PO SCH (07:30)
[2022-01-03] MEDS: Nicotine 21 MG PATCH.TD24 TD SCH (07:33)
== END 2022-01-03 11:50 | DRG 641 ==
LOC: EMEROOARM 01:35 → 3BNU 01:35 → SUATTDRO 04:31 → 3BNU 05:01
PROVIDERS: ADMIT Student in an Organized Health Care Education/Training Program; ATTEND Internal Medicine

== ENCOUNTER 2022-01-03 11:54 | Inpatient (IN) ==
[2022-01-03] MEDS ORDERED: haloperidoL 5 MG TABLET PO PRN (12:07)
[2022-01-03] MEDS ORDERED: Acetaminophen 325 MG TABLET PO PRN (12:07)
[2022-01-03] MEDS ORDERED: *HR* LORazepam 2 MG/ML VIAL IM PRN (12:07)
[2022-01-03] MEDS ORDERED: *HR* LORazepam 1 MG TABLET PO PRN (12:07)
[2022-01-03] MEDS ORDERED: Haloperidol Lactate 5 MG/ML VIAL IM PRN (12:07)
[2022-01-03] MEDS: *HR* Buprenorphine HCl 8 MG TAB.SUBL SL SCH (14:23)
[2022-01-03] MEDS: QUEtiapine Fumarate 100 MG TABLET PO SCH (20:11)
[2022-01-03] MEDS: traZODone 50 MG TABLET PO PRN (20:11)
[2022-01-04] MEDS: Nicotine 21 MG PATCH.TD24 TD SCH (10:04)
[2022-01-04] MEDS: *HR* Buprenorphine HCl 8 MG TAB.SUBL SL SCH (10:05)
[2022-01-04] MEDS: lamoTRIgine 25 MG TABLET PO SCH ×2 (11:47→21:02)
[2022-01-04] MEDS: QUEtiapine Fumarate 100 MG TABLET PO SCH (21:02)
[2022-01-04] MEDS: traZODone 50 MG TABLET PO PRN (21:03)
[2022-01-05] MEDS: *HR* Buprenorphine HCl 8 MG TAB.SUBL SL SCH (09:37)
[2022-01-05] MEDS: Nicotine 21 MG PATCH.TD24 TD SCH (09:38)
[2022-01-05] MEDS: QUEtiapine Fumarate 100 MG TABLET PO SCH (21:17)
[2022-01-05] MEDS: lamoTRIgine 25 MG TABLET PO SCH (21:17)
[2022-01-05] MEDS: traZODone 50 MG TABLET PO PRN (21:17)
[2022-01-06] MEDS: hydrOXYzine pamoate 25 MG CAPSULE PO PRN (00:25)
[2022-01-06] MEDS: *HR* Buprenorphine HCl 8 MG TAB.SUBL SL SCH (11:10)
[2022-01-06] MEDS: Nicotine 21 MG PATCH.TD24 TD SCH (11:11)
[2022-01-06] MEDS: lamoTRIgine 25 MG TABLET PO SCH (21:14)
[2022-01-06] MEDS: QUEtiapine Fumarate 100 MG TABLET PO SCH (21:15)
[2022-01-07] MEDS: Nicotine 21 MG PATCH.TD24 TD SCH (10:31)
[2022-01-07] MEDS: *HR* Buprenorphine HCl 8 MG TAB.SUBL SL SCH (10:31)
[2022-01-07] MEDS: QUEtiapine Fumarate 100 MG TABLET PO SCH (21:32)
[2022-01-07] MEDS: lamoTRIgine 25 MG TABLET PO SCH (21:32)
[2022-01-08] MEDS: Nicotine 21 MG PATCH.TD24 TD SCH (09:59)
[2022-01-08] MEDS: *HR* Buprenorphine HCl 8 MG TAB.SUBL SL SCH (09:59)
[2022-01-08] MEDS: QUEtiapine Fumarate 100 MG TABLET PO SCH (21:16)
[2022-01-08] MEDS: lamoTRIgine 25 MG TABLET PO SCH (21:16)
[2022-01-09] MEDS: *HR* Buprenorphine HCl 8 MG TAB.SUBL SL SCH (10:44)
[2022-01-09] MEDS: Nicotine 21 MG PATCH.TD24 TD SCH (10:45)
[2022-01-09] MEDS: lamoTRIgine 25 MG TABLET PO SCH (20:59)
[2022-01-09] MEDS: traZODone 50 MG TABLET PO PRN (21:00)
[2022-01-09] MEDS: hydrOXYzine pamoate 25 MG CAPSULE PO PRN (21:00)
[2022-01-09] MEDS: QUEtiapine Fumarate 100 MG TABLET PO SCH (21:00)
[2022-01-10] MEDS: Nicotine 21 MG PATCH.TD24 TD SCH (09:34)
[2022-01-10] MEDS: *HR* Buprenorphine HCl 2 MG SUBLINGUAL TABLET SL SCH (09:35)
[2022-01-10] MEDS: hydrOXYzine pamoate 25 MG CAPSULE PO PRN (20:34)
[2022-01-10] MEDS: lamoTRIgine 25 MG TABLET PO SCH (20:34)
[2022-01-10] MEDS: Ibuprofen 600 MG TABLET PO PRN (20:35)
[2022-01-10] MEDS: QUEtiapine Fumarate 100 MG TABLET PO SCH (20:35)
[2022-01-11] MEDS: Nicotine 21 MG PATCH.TD24 TD SCH (09:02)
[2022-01-11] MEDS: *HR* Buprenorphine HCl 2 MG SUBLINGUAL TABLET SL SCH (09:04)
[2022-01-11] MEDS ORDERED: Nicotine 2 MG GUM BC PRN (11:56)
[2022-01-11] MEDS: hydrOXYzine pamoate 25 MG CAPSULE PO PRN (20:36)
[2022-01-11] MEDS: Ibuprofen 600 MG TABLET PO PRN (20:36)
[2022-01-11] MEDS: lamoTRIgine 25 MG TABLET PO SCH (20:36)
[2022-01-11] MEDS: QUEtiapine Fumarate 300 MG TABLET PO SCH (20:36)
[2022-01-12] MEDS: Nicotine 21 MG PATCH.TD24 TD SCH (09:55)
[2022-01-12] MEDS: *HR* Buprenorphine HCl 2 MG SUBLINGUAL TABLET SL SCH (09:59)
[2022-01-12] MEDS: traZODone 50 MG TABLET PO PRN (20:32)
[2022-01-12] MEDS: QUEtiapine Fumarate 300 MG TABLET PO SCH (20:32)
[2022-01-12] MEDS: hydrOXYzine pamoate 25 MG CAPSULE PO PRN (20:32)
[2022-01-12] MEDS: lamoTRIgine 25 MG TABLET PO SCH (20:32)
[2022-01-13] MEDS: Nicotine 21 MG PATCH.TD24 TD SCH (09:30)
[2022-01-13 09:31] VITALS: O2SAT 98
[2022-01-13] MEDS: *HR* Buprenorphine HCl 2 MG SUBLINGUAL TABLET SL SCH (09:31)
[2022-01-13] MEDS ORDERED: QUEtiapine Fumarate 100 MG TABLET PO SCH (21:00)
[2022-01-13] MEDS: lamoTRIgine 25 MG TABLET PO SCH (21:05)
[2022-01-14] MEDS: Nicotine 21 MG PATCH.TD24 TD SCH (08:31)
[2022-01-14] MEDS: *HR* Buprenorphine HCl 2 MG SUBLINGUAL TABLET SL SCH (08:32)
[2022-01-14 09:03] VITALS: BP 110/72; PULSE 98; TEMP 97.6
== END 2022-01-14 11:12 | DRG 885 ==
LOC: 1ANU 11:54
PROVIDERS: ADMIT Psychiatry & Neurology Psychiatry; ATTEND Psychiatry & Neurology Psychiatry